=== PATIENT | male | born 1990 | race Caucasian/White ===

== ENCOUNTER 2018-08-02 00:45 | Emergency (ER) | payer MEDICAID, SELFPAY, OTHER ==
[2018-08-02 01:29] LABS: HEMATOCRIT 48.4 % (42.0-52.0); HEMOGLOBIN 16.7 g/dl (13.5-17.5); MEAN CORPUSCULAR HEMOGLOBIN 30.2 pg (27.0-33.0); MEAN CORPUSCULAR HGB CONC 34.5 g/dl (32.0-36.5); MEAN CORPUSCULAR VOLUME 87.5 fl (80.0-96.0); PLATELET COUNT, AUTOMATED 283 10^3/uL (150-450); RED BLOOD COUNT 5.53 10^6/uL (4.30-6.10); RED CELL DISTRIBUTION WIDTH 12.3 % (11.5-14.5); WHITE BLOOD COUNT 7.6 10^3/uL (4.0-10.0)
[2018-08-02 02:07] LABS: ACETAMINOPHEN LEVEL < 2.0 UG/ML (10.0-30.0); ALBUMIN 4.2 GM/DL (3.2-5.2); ALBUMIN/GLOBULIN RATIO 1.31 (1.00-1.93); ALKALINE PHOSPHATASE 92 U/L (45-117); ALT/SGPT 19 U/L (12-78); ANION GAP 9 MEQ/L (8-16); AST/SGOT 14 U/L (7-37); BILIRUBIN,DIRECT 0.2 MG/DL (0.0-0.2); BILIRUBIN,TOTAL 0.9 MG/DL (0.2-1.0); BLOOD UREA NITROGEN 9 MG/DL (7-18); CALCIUM LEVEL 8.8 MG/DL (8.5-10.1); CARBON DIOXIDE LEVEL 26 MEQ/L (21-32); CHLORIDE LEVEL 108 MEQ/L (98-107); CREATININE FOR GFR 0.94 MG/DL (0.70-1.30); GLOMERULAR FILTRATION RATE > 60.0 (>60); GLUCOSE, FASTING 88 MG/DL (70-100); POTASSIUM SERUM 4.6 MEQ/L (3.5-5.1); SALICYLATE LEVEL < 1.7 MG/DL (5.0-30.0); SODIUM LEVEL 143 MEQ/L (136-145); TOTAL PROTEIN 7.4 GM/DL (6.4-8.2)
[2018-08-02 02:19] LABS: AMPHETAMINES LEVEL URINE NEGATIVE (NEGATIVE); BARBITURATES URINE NEGATIVE (NEGATIVE); BENZODIAZEPINES URINE NEGATIVE (NEGATIVE); CANNABINOIDS URINE POSITIVE (NEGATIVE); COCAINE METABOLITE URINE NEGATIVE (NEGATIVE); METHADONE URINE NEGATIVE (NEGATIVE); OPIATES URINE NEGATIVE (NEGATIVE); PHENCYCLIDINE URINE NEGATIVE (NEGATIVE)
== END 2018-08-02 10:06 ==
LOC: M ED 00:45
DX: R45.851 Suicidal ideations (principal); Z72.89 Other problems related to lifestyle; F17.200 Nicotine dependence, unspecified, uncomplicated
CPT/HCPCS: 93005

== ENCOUNTER 2019-07-15 21:13 | Emergency (ER) | payer MEDICAID, OTHER ==
[~2019-07-15] VITALS: Ht 180.3 cm; Wt 69.5 kg
[2019-07-15] MEDS ORDERED: ONDANSETRON 4MG/2ML VIAL (J2405) IV ONE (22:30)
[2019-07-15] MEDS ORDERED: NS 1,000 ML IV ONE (22:30)
[2019-07-15] MEDS ORDERED: MORPHINE 4 MG/ML 1ML VIAL/SYRINGE (J2270) IV ONE (22:30)
[2019-07-15] MEDS ORDERED: ISOVUE-370 76% 100ML VIAL (Q9967) As Ordered ONE (23:01)
[2019-07-15 23:09] LABS: BASO # 0.1 10^3/uL (0.0-0.2); BASO % 0.6 % (0.0-1.0); EOS # 0.1 10^3/uL (0.0-0.5); EOS % 1.6 % (0.0-3.0); HEMATOCRIT 40.3 % (42.0-52.0); HEMOGLOBIN 13.9 g/dl (13.5-17.5); LYMPH % 35.3 % (24.0-44.0); MEAN CORPUSCULAR HEMOGLOBIN 30.2 pg (27.0-33.0); MEAN CORPUSCULAR HGB CONC 34.5 g/dl (32.0-36.5); MEAN CORPUSCULAR VOLUME 87.4 fl (80.0-96.0); MONO # 0.7 10^3/uL (0.0-0.8); MONO % 7.9 % (0.0-5.0); NEUTROPHILS # 4.7 10^3/uL (1.5-8.5); NEUTROPHILS % 54.4 % (36.0-66.0); PLATELET COUNT, AUTOMATED 214 10^3/uL (150-450); RED BLOOD COUNT 4.61 10^6/uL (4.30-6.10); WHITE BLOOD COUNT 8.6 10^3/uL (4.0-10.0)
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
[2019-07-16] MEDS ORDERED: OXYCODONE/APAP 5MG/325MG(BULK FOR ED) 1 TABLET PO ONE (01:30)
[2019-07-16] MEDS ORDERED: PERC5TAB12 PO (01:47)
[2019-07-16 01:57] VITALS: BP 127/57
== END 2019-07-16 02:34 | disposition home or self-care (01) ==
LOC: M ED 21:13
DX: S22.31XA Fracture of one rib, right side, initial encounter for closed fracture (principal); V49.49XA Driver injured in collision with other motor vehicles in traffic accident, initial encounter; Y92.410 Unspecified street and highway as the place of occurrence of the external cause; F17.210 Nicotine dependence, cigarettes, uncomplicated
CPT/HCPCS: 71260; 80047; 85025; 86850; 86900; 86901; 94010; 96361; 96374; 96375; 99284; J2270; J2405; Q9967

== ENCOUNTER 2019-07-19 18:05 | Emergency (ER) | payer OTHER ==
[~2019-07-19] VITALS: Ht 175.3 cm; Wt 70.1 kg
[~2019-07-19 18:05] MED LIST: PERC5TAB12 PO
--- NOTE | 2019-07-19 18:58 | REP ---
Chest x-ray: Two views. History: Rib pain . Comparison study: Comparison CT chest July 15, 2019. . Findings: The lungs are well inflated and free of infiltrate. The pleural angles are sharp. The heart size is normal. Pulmonary vasculature is not increased. There is mild wedging of one of the lower thoracic vertebrae corresponding with the CT findings of an old T11 wedge compression deformity. The CT finding of a anterior second rib fracture on the right is not visible radiographically. Impression: No active cardiopulmonary disease. Electronically Signed by Qamar Mujica MD 07/19/2019 06:50 P
[2019-07-19] MEDS ORDERED: IBUP-1022 PO (20:18)
[2019-07-19] MEDS ORDERED: PERC5TAB12 PO (20:18)
[2019-07-19 20:29] VITALS: BP 135/81
== END 2019-07-19 20:30 | disposition home or self-care (01) ==
LOC: M ED 18:05
DX: Z76.0 Encounter for issue of repeat prescription (principal); S22.31XD Fracture of one rib, right side, subsequent encounter for fracture with routine healing; F17.200 Nicotine dependence, unspecified, uncomplicated

== ENCOUNTER 2021-09-28 14:27 | Emergency (ER) | payer OTHER, SELFPAY ==
[~2021-09-28] VITALS: Ht 177.8 cm; Wt 70.5 kg
[~2021-09-28 14:27] MED LIST changes: +IBUP-1022 PO
[2021-09-28] MEDS ORDERED: NORCO, ANEXSIA 5/325MG TABLET (HYDROcodone/ACETAMINOPHEN) PO ONE (15:25)
[2021-09-28] MEDS ORDERED: KETOROLAC 30 MG/ML 1ML VIAL IM ONE (16:00)
[2021-09-28] MEDS ORDERED: HYDR-3713 PO (16:16)
[2021-09-28 16:30] VITALS: BP 129/59
== END 2021-09-28 16:38 | disposition home or self-care (01) ==
LOC: M ED 14:27
DX: S20.221A Contusion of right back wall of thorax, initial encounter (principal); W22.8XXA Striking against or struck by other objects, initial encounter; Y92.79 Other farm location as the place of occurrence of the external cause; F17.210 Nicotine dependence, cigarettes, uncomplicated

== ENCOUNTER 2023-10-29 13:24 | Inpatient (IN) | payer OTHER ==
[~2023-10-29] VITALS: Ht 175.3 cm; Wt 68.0 kg
[~2023-10-29 13:24] MED LIST changes: +HYDR-3713 PO
[2023-10-29] MEDS ORDERED: AMPH1CAP16 PO (13:41)
[2023-10-29 14:13] LABS: HEMATOCRIT 43.9 % (42.0-52.0); HEMOGLOBIN 14.6 g/dl (13.5-17.5); MEAN CORPUSCULAR HEMOGLOBIN 29.6 pg (27.0-33.0); MEAN CORPUSCULAR HGB CONC 33.3 g/dl (32.0-36.5); MEAN CORPUSCULAR VOLUME 88.9 fl (80.0-96.0); PLATELET COUNT, AUTOMATED 241 10^3/uL (150-450); RED BLOOD COUNT 4.94 10^6/uL (4.30-6.10); WHITE BLOOD COUNT 6.7 10^3/uL (4.0-10.0)
[2023-10-29 14:35] LABS: AMPHETAMINES LEVEL URINE NEGATIVE (NEGATIVE); BARBITURATES URINE NEGATIVE (NEGATIVE); BENZODIAZEPINES URINE NEGATIVE (NEGATIVE); COCAINE METABOLITE URINE NEGATIVE (NEGATIVE)
[2023-10-29 14:36] LABS: CANNABINOIDS URINE NEGATIVE (NEGATIVE); ETHYL ALCOHOL (ETHANOL) 0.004 % (0.000-0.010); METHADONE URINE NEGATIVE (NEGATIVE); OPIATES URINE NEGATIVE (NEGATIVE); PHENCYCLIDINE URINE NEGATIVE (NEGATIVE)
[2023-10-29 14:38] LABS: SALICYLATE LEVEL < 3.0 MG/DL (<30)
[2023-10-29 14:39] LABS: ALBUMIN 4.3 G/DL (3.2-5.2); ALKALINE PHOSPHATASE 74 U/L (46-116); ALT/SGPT 40 U/L (7.0-40); AST/SGOT 32 U/L (<34); BILIRUBIN,DIRECT 0.1 MG/DL (<0.4); BILIRUBIN,TOTAL 0.4 MG/DL (0.3-1.2); BLOOD UREA NITROGEN 16 MG/DL (9-23); CARBON DIOXIDE LEVEL 30 MMOL/L (20-31); CHLORIDE LEVEL 106 MMOL/L (98-107); CREATININE FOR GFR 0.89 MG/DL (0.70-1.30); GLOMERULAR FILTRATION RATE > 60.0 (>60); GLUCOSE, FASTING 82 MG/DL (60-100); POTASSIUM SERUM 3.9 MMOL/L (3.5-5.1); SODIUM LEVEL 142 MMOL/L (136-145)
[2023-10-29 14:41] LABS: THYROID STIMULATING HORMONE 2.182 uIU/ML (0.55-4.78)
[2023-10-29] MEDS ORDERED: NICOTINE 21MG/24HR 1 EA TRANSDERMAL TD ONE (15:55)
[2023-10-29] MEDS ORDERED: traZODone 50 MG TAB PO PRN (20:15)
[2023-10-29] MEDS ORDERED: MOM 30ML SUSPENSION UDC PO PRN (20:15)
[2023-10-29] MEDS ORDERED: MAALOX 30 ML SUSP *UDC PO PRN (20:15)
[2023-10-29] MEDS ORDERED: diphenhydrAMINE 25MG CAP PO PRN (20:15)
[2023-10-29] MEDS ORDERED: ACETAMINOPHEN TAB 650MG DOSE (2X325MG) PO PRN (20:15)
[2023-10-29] MEDS ORDERED: IBUPROFEN 400MG TAB PO PRN (20:15)
[2023-10-29] MEDS ORDERED: IBUP1TAB7 PO (22:21)
[2023-10-29] MEDS ORDERED: HOME MED LIST COMPLETE! XX SCH (22:25)
[2023-10-29 22:42] VITALS: BP 125/69; TEMP 97.8; O2SAT 99
[2023-10-30 06:06] VITALS: BP 125/60; TEMP 98.3; O2SAT 96
[2023-10-30] MEDS: DULoxetine 30MG CAPSULE (CYMBALTA) PO SCH (11:14)
[2023-10-30] MEDS: LIDOCAINE 5% (LIDODERM) PATCH TD SCH (11:15)
[2023-10-30] MEDS ORDERED: NICOTINE 21MG/24HR 1 EA TRANSDERMAL TD PRN (15:30)
[2023-10-30 15:55] VITALS: BP 117/68; TEMP 98.5; O2SAT 99
[2023-10-31 06:13] VITALS: BP 134/69; TEMP 98.5
[2023-10-31] MEDS: LIDOCAINE 5% (LIDODERM) PATCH TD SCH (08:27)
[2023-10-31] MEDS: DULoxetine 30MG CAPSULE (CYMBALTA) PO SCH (08:29)
[2023-10-31] MEDS ORDERED: PROPRANOLOL 20 MG TAB PO PRN (12:10)
[2023-10-31 12:21] VITALS: BP 143/83
[2023-10-31] MEDS ORDERED: NICO21PAT TD (12:21)
[2023-10-31] MEDS ORDERED: PROP20TA PO (12:21)
[2023-10-31] MEDS ORDERED: LIDO5TD TD (12:21)
[2023-10-31] MEDS ORDERED: CYMB1CAP5 PO (12:21)
== END 2023-10-31 14:12 | disposition home or self-care (01) | DRG 756 ==
LOC: M ED 13:24 → M ED INP 20:11 → M PSY 21:53
PROVIDERS: ADMIT Psychiatry & Neurology Psychiatry; ATTEND Student in an Organized Health Care Education/Training Program
DX: F41.1 Generalized anxiety disorder (principal); Z63.0 Problems in relationship with spouse or partner; G89.29 Other chronic pain; M54.9 Dorsalgia, unspecified; F17.210 Nicotine dependence, cigarettes, uncomplicated; Z63.4 Disappearance and death of family member; F63.81 Intermittent explosive disorder

== ENCOUNTER 2025-07-23 11:45 | Inpatient (IN) | payer MEDICAID, OTHER ==
[~2025-07-23] VITALS: Ht 165.1 cm; Wt 65.6 kg
[~2025-07-23 11:45] MED LIST changes: +AMPH1CAP16 PO; +CYMB1CAP5 PO; -IBUP-1022 PO; +IBUP1TAB7 PO; +IBUP600T42 PO; +LIDO5TD TD; +NICO21PAT TD; +PROP20TA PO
[2025-07-23 12:19] LABS: PLATELET COUNT, AUTOMATED 313 10^3/uL (150-450)
[2025-07-23 12:33] LABS: ETHYL ALCOHOL (ETHANOL) < 0.003 % (0.000-0.010)
[2025-07-23 12:35] LABS: ALT/SGPT 17 U/L (7.0-40); AST/SGOT 17 U/L (<34); CALCIUM LEVEL 9.8 MG/DL (8.5-10.1); CARBON DIOXIDE LEVEL 28 MMOL/L (20-31); CHLORIDE LEVEL 104 MMOL/L (98-107); CREATININE FOR GFR 1.00 MG/DL (0.70-1.30); GLOMERULAR FILTRATION RATE > 90.0 (>60); POTASSIUM SERUM 4.4 MMOL/L (3.5-5.1); SALICYLATE LEVEL < 3.0 MG/DL (<30); SODIUM LEVEL 140 MMOL/L (136-145)
[2025-07-23] MEDS ORDERED: HOME MED LIST COMPLETE! XX SCH (13:30)
[2025-07-23 14:08] LABS: BARBITURATES URINE NEGATIVE (NEGATIVE); BENZODIAZEPINES URINE NEGATIVE (NEGATIVE); CANNABINOIDS URINE NEGATIVE (NEGATIVE); COCAINE METABOLITE URINE NEGATIVE (NEGATIVE); METHADONE URINE NEGATIVE (NEGATIVE); OPIATES URINE NEGATIVE (NEGATIVE); PHENCYCLIDINE URINE NEGATIVE (NEGATIVE)
[2025-07-23 14:11] LABS: AMPHETAMINES LEVEL URINE POSITIVE (NEGATIVE)
[2025-07-23] MEDS ORDERED: HALOPERIDOL 5 MG TAB PO PRN (16:20)
[2025-07-23] MEDS ORDERED: IBUPROFEN 400 MG TAB PO PRN (16:20)
[2025-07-23] MEDS ORDERED: ACETAMINOPHEN 325 MG TAB PO PRN (16:20)
[2025-07-23] MEDS ORDERED: traZODone 50 MG TAB PO PRN (16:20)
[2025-07-23] MEDS ORDERED: OLANZapine 5 MG TAB PO PRN (16:20)
[2025-07-23] MEDS ORDERED: MOM 30 ML SUSPENSION UDC PO PRN (16:20)
[2025-07-23] MEDS ORDERED: LORazepam 1 MG TAB PO PRN (16:20)
[2025-07-23] MEDS ORDERED: MAALOX 30 ML SUSP *UDC PO PRN (16:20)
[2025-07-23 17:45] VITALS: BP 119/68; TEMP 97.5; O2SAT 97
[2025-07-23 20:28] VITALS: BP 119/68; TEMP 97.5; O2SAT 97
[2025-07-24 06:29] VITALS: BP 117/57; TEMP 97.5; O2SAT 100
[2025-07-24] MEDS: NICOTINE 14 MG/24 HR TRANSDERMAL TD PRN (13:14)
[2025-07-24 14:18] VITALS: BP 125/71; TEMP 98.2; O2SAT 100
[2025-07-24] MEDS: DICLOFENAC EPOLAMINE 1.3% PATCH TOP PRN (18:15)
[2025-07-25 06:35] VITALS: BP 105/56; TEMP 98.3; O2SAT 97
[2025-07-25] MEDS: NICOTINE 21 MG/24 HR 1 EA TRANSDERMAL TD SCH (09:00)
[2025-07-25 15:25] VITALS: BP 127/69; TEMP 96.8; O2SAT 99
[2025-07-25] MEDS: NICOTINE 21 MG/24 HR 1 EA TRANSDERMAL TD PRN (16:55)
[2025-07-25] MEDS ORDERED: TRAZ-252 PO (21:06)
[2025-07-25] MEDS ORDERED: DULO1CAP5 PO (21:06)
== END 2025-07-26 05:58 | disposition home or self-care (01) | DRG 756 ==
LOC: M ED 11:45 → M ED INP 16:17 → M PSY 17:43
PROVIDERS: ADMIT Internal Medicine; ATTEND Internal Medicine
DX: F41.1 Generalized anxiety disorder (principal); F41.0 Panic disorder [episodic paroxysmal anxiety]; F15.90 Other stimulant use, unspecified, uncomplicated; F63.81 Intermittent explosive disorder; F90.9 Attention-deficit hyperactivity disorder, unspecified type; R45.851 Suicidal ideations; F17.210 Nicotine dependence, cigarettes, uncomplicated; M54.9 Dorsalgia, unspecified; G89.29 Other chronic pain; Z63.0 Problems in relationship with spouse or partner

== ENCOUNTER 2025-07-31 09:02 | Emergency (ER) | payer OTHER ==
[~2025-07-31] VITALS: Ht 170.2 cm; Wt 68.0 kg
[~2025-07-31 09:02] MED LIST changes: +DULO1CAP5 PO; +TRAZ-252 PO
[2025-07-31 09:05] VITALS: BP 150/84; TEMP 99; O2SAT 99
[2025-07-31] MEDS ORDERED: DICL1PAT6 TD (10:27)
[2025-07-31] MEDS ORDERED: DULO1CAP5 PO (10:28)
== END 2025-07-31 10:35 | disposition home or self-care (01) ==
LOC: M ED 09:02
DX: Z76.0 Encounter for issue of repeat prescription (principal); F41.9 Anxiety disorder, unspecified; F17.210 Nicotine dependence, cigarettes, uncomplicated; F19.10 Other psychoactive substance abuse, uncomplicated; F10.10 Alcohol abuse, uncomplicated; Z79.899 Other long term (current) drug therapy